=== PATIENT | female | born 1995 ===

== ENCOUNTER 2018-07-11 10:53 | Outpatient (CLI) | payer OTHER ==
[~2018-07-11] VITALS: Ht 157.5 cm; Wt 46.3 kg
== END 2018-07-11 11:15 | disposition home or self-care (01) ==
LOC: OFIC 805 10:53
DX: J03.81 Acute recurrent tonsillitis due to other specified organisms (principal); G51.0 Bell's palsy

== ENCOUNTER 2018-08-25 09:34 | Outpatient (CLI) | payer OTHER ==
[~2018-08-25] VITALS: Ht 152.4 cm; Wt 46.3 kg
== END 2018-08-25 09:50 | disposition home or self-care (01) ==
LOC: OFIC 805 09:34
DX: G51.0 Bell's palsy (principal); J35.01 Chronic tonsillitis